=== PATIENT | female | born 1955 | race Caucasian/White ===

== ENCOUNTER 2017-05-05 15:24 | Emergency (ER) | payer BC ==
[~2017-05-05] VITALS: Ht 165.1 cm; Wt 77.0 kg
[2017-05-05 15:26] VITALS: TEMP 36.4; Ht 165.1 cm; Wt 77.0 kg
--- NOTE | 2017-05-05 15:45 | EMERGENCY ROOM VISIT NOTE ---
History Report prepared by Jb: Juan Weaver Under the Supervision of: Dr. Rick Roman M.D. First contact with patient: 15:30 Chief Complaint: OTHER COMPLAINT Stated Complaint: TIGHTNESS FROM NEW MEDS. PARKINSONS History of Present Illness The patient is a 62 year old female who presents to the Emergency Room with complaints of constant abdominal tightness beginning today. The patient states that she has Parkinson's and has recently started multiple new medications within the last week. She notes that her neurologist has changed her medication to control her Parkinson's. She reports that these new medications have made her worried and develop abdominal tightness. The patient states that she was supposed to increase the dose of her medication tonight and is now worried about stopping it. She notes that her tightness might be caused by her anxiety. She denies any change to her bowel movements Source of History: patient Onset: today Position: abdomen Quality: other (tightness) Timing: constant Note: She denies any change to her bowel movements. She also complains of anxiety. Review of Systems See HPI for pertinent positives & negatives. A total of 10 systems reviewed and were otherwise negative. Past Medical & Surgical Medical Problems: (1) Anxiety (2) Parkinson disease Family History Diabetes mellitus Heart disease Hypertension Social History Marital Status: Housing Status: lives with family Occupation Status: unemployed Current/Historical Medications Scheduled Amantadine HCl (Gocovri), 274 MG PO HS Carbidopa-Levodopa (Rytary 23.75-95 mg), Unknown Dose PO Q4H Gabapentin (Neurontin), 100 MG PO TID Lorazepam (Ativan), 1 MG PO TID Ropinirole (Requip), 0.25 MG PO TID Allergies Coded Allergies: Buspirone (Unverified Adverse Reaction, Severe, "COULDN'T FUNCTION", ) Heparin (Unverified Adverse Reaction, Severe, SEIZURES, 05/05/17) Diphenhydramine (Unverified Adverse Reaction, Intermediate, ANXIOUS, ) Metoclopramide (Unverified Adverse Reaction, Intermediate, STOMACH UPSET, 05/05/17) Physical Exam Vital Signs Date Time Temp Pulse Resp B/P (MAP) Pulse Ox O2 Delivery O2 Flow Rate FiO2 05/05/17 16:22 94 18 122/70 92 Room Air 05/05/17 15:26 36.4 105 20 142/96 94 Room Air Physical Exam GENERAL: Awake, alert, well-appearing, in no acute distress HENT: Normocephalic, atraumatic. Oropharynx unremarkable. EYES: Normal conjunctiva. Sclera non-icteric. NECK: Supple. No nuchal rigidity. FROM. No JVD. RESPIRATORY: Clear to auscultation. CARDIAC: Regular rate, normal rhythm. Extremities warm and well perfused. Pulses equal. ABDOMEN: Soft, non-distended. No tenderness to palpation. No rebound or guarding. No masses. RECTAL: Deferred. MUSCULOSKELETAL: Chest examination reveals no tenderness. The back is symmetrical on inspection without obvious abnormality. There is no CVA tenderness to palpation. No joint edema. LOWER EXTREMITIES: Calves are equal size bilaterally and non-tender. No edema. No discoloration. NEURO: Normal sensorium. No sensory or motor deficits noted. SKIN: No rash or jaundice noted. Medical Decision & Procedures ED Course 1531: Past medical records reviewed. The patient was evaluated in room C1. A complete history and physical examination was performed. 1628: Upon reexamination the patient is stable. I discussed results and treatment plan with the patient. She verbalizes agreement and understanding. The patient is ready for discharge. Medical Decision Differential diagnoses include: medication adjustment. This is a 62-year-old female who presents to the emergency department complaining of starting new medications this week and is concerned that they are causing her anxiety. I offered to do laboratory work as well as imaging however the patient refused. She is visiting because she has questions over her medications. She just started her amantadine this week and has only had 7 days of it. She is to increase it tonight however she feels it is causing her anxiety to be worse. Because of this I felt that the patient could go back to her old medication regimen however I stressed the need to follow-up with Dr. Butler's office. Patient was in agreement with the treatment plan. Blood Pressure Screening Patient's blood pressure: Normal blood pressure Blood pressure disposition: Did not require urgent referral Impression Primary Impression: Medication reaction Scribe Attestation The scribe's documentation has been prepared under my direction and personally reviewed by me in its entirety. I confirm that the note above accurately reflects all work, treatment, procedures, and medical decision making performed by me. Departure Information Dispostion Home / Self-Care Forms HOME CARE DOCUMENTATION FORM, IMPORTANT VISIT INFORMATION, WORK / SCHOOL INSTRUCTIONS Patient Instructions My [facility] Additional Instructions Stop taking Amantidine You have been examined and treated today on an emergency basis only. This is not a substitute for, or an effort to provide, complete comprehensive medical care. It is impossible to recognize and treat all injuries or illnesses in a single emergency department visit. It is therefore important that you follow up closely with him is likely getting better that happened all day mik PCP. Call as soon as possible for an appointment. Thank you for your time and consideration. I look forward to speaking with you again soon. Please don't hesitate to call us if you have any questions. He missed me Problem Qualifiers Primary Impression: Medication reaction Encounter type: initial encounter Qualified Codes: T88.7XXA - Unspecified adverse effect of drug or medicament, initial encounter
[2017-05-05] MEDS ORDERED: ROPI0.25 PO (16:08)
[2017-05-05] MEDS ORDERED: AMAN137C PO (16:08)
[2017-05-05] MEDS ORDERED: ATV/1 PO (16:08)
[2017-05-05] MEDS ORDERED: CARB1CAP19 PO (16:08)
[2017-05-05] MEDS ORDERED: GABA-112 PO (16:08)
[2017-05-05 16:22] VITALS: BP 122/70; PULSE 94; O2SAT 92
== END 2017-05-05 16:37 | disposition home or self-care (01) ==
LOC: C.EDB 15:27 → C.EDC 16:37
DX: F41.9 Anxiety disorder, unspecified (principal); T42.8X5A Adverse effect of antiparkinsonism drugs and other central muscle-tone depressants, initial encounter; G20 Parkinson's disease; Z83.3 Family history of diabetes mellitus; Z82.49 Family history of ischemic heart disease and other diseases of the circulatory system; Z88.8 Allergy status to other drugs, medicaments and biological substances; Z88.6 Allergy status to analgesic agent

== ENCOUNTER 2017-05-12 14:06 | Emergency (ER) | payer BC ==
[~2017-05-12 14:06] MED LIST: AMAN137C PO; ATV/1 PO; CARB1CAP19 PO; GABA-112 PO; ROPI0.25 PO
[2017-05-12 14:11] VITALS: TEMP 36.3
[2017-05-12] MEDS ORDERED: SODIUM CHLORIDE 0.9% 1000ML 1,000 ML IV STA (14:25)
[2017-05-12] MEDS ORDERED: LORAZEPAM 2 MG/ML 1 ML VIAL IV STA (14:25)
--- NOTE | 2017-05-12 14:34 | EMERGENCY ROOM VISIT NOTE ---
History Report prepared by Jb: Jonathan Aldridge Under the Supervision of: Dr. Josemanuel Gomez M.D. First contact with patient: 14:15 Chief Complaint: ANXIETY Stated Complaint: BLOATING,DIFFICULTY WALKING,AGITATION,ANXIETY History of Present Illness The patient is a 62 year old female who presents to the Emergency Room with complaints of worsening Parkinson's/anxiety that began about a week ago. The patient states that she has a history of Parkinson's Disease and was recently prescribed amantadine a week ago by Dr. Butler. She reports that since taking the medication she has been experiencing abdominal bloating, tightness, and muscle rigidity. Per the patient's daughter, the patient has been experiencing mood swings and anxiety. She reports that the patient has been experiencing sensations that may not be there. The patient states that she feels as if she wants to cry all the time, but denies any thoughts of hurting herself. The patient reports that she followed up with Dr. Butler who told her to keep taking the amantadine, but she states she feels the medication is causing her symptoms. the patient denies headache, a recent fall, vomiting, and thoughts of hurting herself. Source of History: patient Onset: a week ago Position: other (global) Timing: worsening Associated Symptoms: + abdominal pain (tightness), No headache, No vomiting Note: Associated symptoms: bloating, mood swings. Review of Systems See HPI for pertinent positives and negatives. A total of ten systems were reviewed and were otherwise negative. Past Medical & Surgical Medical Problems: (1) Anxiety (2) Parkinson disease Family History Diabetes mellitus Heart disease Hypertension Social History Smoking Status: Never Smoker Marital Status: Housing Status: lives with family Occupation Status: unemployed Current/Historical Medications Scheduled Amantadine HCl (Gocovri), 274 MG PO HS Carbidopa-Levodopa (Rytary 23.75-95 mg), Unknown Dose PO Q4H Lorazepam (Ativan), 1 MG PO TID Ropinirole (Requip), 0.25 MG PO TID Allergies Coded Allergies: Buspirone (Unverified Adverse Reaction, Severe, "COULDN'T FUNCTION", ) Heparin (Unverified Adverse Reaction, Severe, SEIZURES, 05/12/17) Diphenhydramine (Unverified Adverse Reaction, Intermediate, ANXIOUS, ) Metoclopramide (Unverified Adverse Reaction, Intermediate, STOMACH UPSET, 05/12/17) Physical Exam Vital Signs Date Time Temp Pulse Resp B/P (MAP) Pulse Ox O2 Delivery O2 Flow Rate FiO2 05/12/17 17:12 86 16 111/72 98 05/12/17 16:18 84 16 112/76 95 Room Air 05/12/17 15:17 68 22 116/66 05/12/17 14:11 36.3 90 20 138/91 97 Room Air Physical Exam Physical Exam GENERAL: She is oriented to person, place, and time. She appears well- developed and well-nourished. She does not appear distressed. ____ HENT: Exam performed. Head: Normocephalic and atraumatic. Right Ear: External ear normal. No mastoid tenderness. Left Ear: External ear normal. No mastoid tenderness. Mouth/Throat: The oropharynx is clear and moist. No trismus in the jaw. No dental abscesses or uvula swelling. No oropharyngeal exudate or tonsillar abscesses. ____ EYES: Conjunctivae and EOM are normal. Pupils are equal, round, and reactive to light. Right eye exhibits no discharge. Left eye exhibits no discharge. No scleral icterus. ____ NECK: Normal range of motion. Neck supple. No JVD present. No spinous process tenderness present. No carotid bruit present. No rigidity. No tracheal deviation and normal range of motion present. No Brudzinski's sign and no Kernig 's sign noted. ____ CV: Normal rate, regular rhythm, normal heart sounds and intact distal pulses. There is no peripheral edema. Palpable radial pulses bue. ____ PULM/CHEST: Effort normal and breath sounds normal. No respiratory distress. No stridor. She has no wheezes. She has no rales. Chest Wall: She exhibits no tenderness. ____ ABD: The abdomen is soft. Bowel sounds are normal. She has no distension. No mass is present. There is no tenderness. There is no rebound, no guarding, no Howard's sign and no tenderness at McBurney's point. Rovsig negative MUSC/SKEL: Normal range of motion. There is no peripheral edema, tenderness or deformity. LYMPH: No cervical adenopathy. ____ NEURO: She is alert. She has a baseline tremor. She is anxious. Mild cogwheel rigidity. ____ SKIN: Skin is warm and dry. She is not diaphoretic. ____ PSYCH: Anxious/agitated. Medical Decision & Procedures ER Provider Diagnostic Interpretation: Radiology results as stated below per my review and radiologist interpretation: SINGLE VIEW CHEST CLINICAL HISTORY: Parkinson's disease. Anxiety. FINDINGS: An AP, portable, upright chest radiograph is obtained. No prior studies are available for comparison at the time of dictation. The examination is degraded by portable technique and patient rotation. The cardiomediastinal silhouette is unremarkable. There is mild atherosclerotic calcification of the thoracic aorta. No airspace consolidation or pleural effusion is identified. There is minimal left basilar atelectasis. No pneumothorax is seen. The skeletal structures are osteopenic. The bony thorax is grossly intact. IMPRESSION: No acute cardiopulmonary abnormality. Electronically signed by: Kennedy Rosa M.D. 05/12/2017 2:58 PM Dictated Date/Time: 05/12/2017 2:[address] SCAN OF THE BRAIN WITHOUT IV CONTRAST CLINICAL HISTORY: Parkinson's disease. Anxiety. COMPARISON STUDY: No priors. TECHNIQUE: Unenhanced axial CT scan of the brain is performed from the vertex to the skull base. A dose lowering technique was utilized adhering to the principles of ALARA. CT DOSE: 537.48 mGy.cm FINDINGS: Brain parenchyma: The brain parenchyma is normal in appearance. There is no hemorrhage, mass effect, or evidence of acute territorial ischemia by CT criteria. Powers-white matter is preserved. No extra-axial fluid collection is seen. Ventricles, sulci, cisterns: Normal in configuration. Intracranial vasculature: The visualized intracranial vasculature at the skull base is normal in appearance. Calvarium: Unremarkable. Sinuses and mastoids: The visualized paranasal sinuses are clear. The mastoid air cells are well pneumatized. Orbits: The bony orbits are grossly intact. IMPRESSION: There is no hemorrhage, mass effect, or evidence of acute territorial ischemia by CT criteria. Electronically signed by: Kennedy Rosa M.D. 05/12/2017 4:00 PM Dictated Date/Time: 05/12/2017 3:57 PM Laboratory Results 05/12/17 14:50 Red Blood Count 5.47, Mean Corpuscular Volume 86.3, Mean Corpuscular Hemoglobin 29.6, Mean Corpuscular Hemoglobin Concent 34.3, Mean Platelet Volume 10.1, Neutrophils (%) (Auto) 69.0, Lymphocytes (%) (Auto) 22.4, Monocytes (%) (Auto) 7.4, Eosinophils (%) (Auto) 0.9, Basophils (%) (Auto) 0.2, Neutrophils # (Auto) 5.65, Lymphocytes # (Auto) 1.84, Monocytes # (Auto) 0.61, Eosinophils # (Auto) 0.07, Basophils # (Auto) 0.02 05/12/17 14:50 Test 05/12/17 14:49 05/12/17 14:50 05/12/17 16:18 Lactic Acid Level 1.0 mmol/L (0.4-2.0) Ammonia 11.0 umol/L (11-32) Ethyl Alcohol mg/dL < 3.0 mg/dl (0-3) White Blood Count 8.20 K/uL (4.8-10.8) Red Blood Count 5.47 M/uL (4.2-5.4) Hemoglobin 16.2 g/dL (12.0-16.0) Hematocrit 47.2 % (37-47) Mean Corpuscular Volume 86.3 fL (80-100) Mean Corpuscular Hemoglobin 29.6 pg (25-34) Mean Corpuscular Hemoglobin Concent 34.3 g/dl (32-36) Platelet Count 251 K/uL (130-400) Mean Platelet Volume 10.1 fL (7.4-10.4) Neutrophils (%) (Auto) 69.0 % Lymphocytes (%) (Auto) 22.4 % Monocytes (%) (Auto) 7.4 % Eosinophils (%) (Auto) 0.9 % Basophils (%) (Auto) 0.2 % Neutrophils # (Auto) 5.65 K/uL (1.4-6.5) Lymphocytes # (Auto) 1.84 K/uL (1.2-3.4) Monocytes # (Auto) 0.61 K/uL (0.11-0.59) Eosinophils # (Auto) 0.07 K/uL (0-0.5) Basophils # (Auto) 0.02 K/uL (0-0.2) RDW Standard Deviation 41.0 fL (36.4-46.3) RDW Coefficient of Variation 12.9 % (11.5-14.5) Immature Granulocyte % (Auto) 0.1 % Immature Granulocyte # (Auto) 0.01 K/uL (0.00-0.02) Prothrombin Time 10.7 SECONDS (9.0-12.0) Prothromb Time International Ratio 1.0 (0.9-1.1) Activated Partial Thromboplast Time 27.1 SECONDS (21.0-31.0) Partial Thromboplastin Ratio 1.0 Anion Gap 11.0 mmol/L (3-11) Estimated GFR () 95.1 Estimated GFR (Non- 82.1 BUN/Creatinine Ratio 12.5 (10-20) Calcium Level 8.8 mg/dl (8.5-10.1) Total Bilirubin 0.6 mg/dl (0.2-1) Direct Bilirubin 0.1 mg/dl (0-0.2) Aspartate Amino Transf (AST/SGOT) 16 U/L (15-37) Alanine Aminotransferase (ALT/SGPT) 9 U/L (12-78) Alkaline Phosphatase 125 U/L (45-117) Total Creatine Kinase 158 U/L (26-192) Troponin I < 0.015 ng/ml (0-0.045) Total Protein 7.9 gm/dl (6.4-8.2) Albumin 3.9 gm/dl (3.4-5.0) Lipase 128 U/L (73-393) Salicylates Level < 1.7 mg/dl (2.8-20) Acetaminophen Level < 2 ug/ml (10-30) Urine Color YELLOW Urine Appearance CLEAR (CLEAR) Urine pH 6.5 (4.5-7.5) Urine Specific [place] 1.009 (1.000-1.030) Urine Protein NEG (NEG) Urine Glucose (UA) NEG (NEG) Urine Ketones NEG (NEG) Urine Occult Blood NEG (NEG) Urine Nitrite NEG (NEG) Urine Bilirubin NEG (NEG) Urine Urobilinogen NEG (NEG) Urine Leukocyte Esterase NEG (NEG) Urine Opiates Screen NEG (NEG) Urine Methadone, Qualitative NEG (NEG) Urine Barbiturates NEG (NEG) Urine Phencyclidine (PCP) Level NEG (NEG) Ur Amphetamine/Methamphetamine NEG (NEG) MDMA (Ecstasy) Screen NEG (NEG) Urine Benzodiazepines Screen NEG (NEG) Urine Cocaine Metabolite NEG (NEG) Urine Marijuana (THC) NEG (NEG) Laboratory results reviewed by me Medications Administered Medications (Trade) Dose Ordered Sig/Leno Route Start Time Stop Time Status Last Admin Dose Admin Sodium Chloride 1,000 ml @ 125 mls/hr Q8H STAT IV 05/12/17 14:25 05/12/17 18:05 DC 05/12/17 15:05 125 MLS/HR Lorazepam (Ativan Inj) 0.5 mg NOW STAT IV 05/12/17 14:25 05/12/17 14:34 DC 05/12/17 15:05 0.5 MG ECG Per My Interpretation Indication: altered mental status Rate (beats per minute): 85 Rhythm: normal sinus Findings: other (AL, QRS, QTC WNL// No ST elevation/depression) ED Course 1418: The patient was evaluated in room B02. A complete history and physical exam was performed. The patient was seen in the emergency department one week ago for abdominal tightness that was thought to be from Amantadine for her Parkinson's disease vs. her anxiety. She declined any lab work or imaging and was supposed to follow up with Dr. Butler. 1425: Ordered Ativan Injection 0.5 mg IV, Sodium Chloride 1000 ml @ 125 mls/hr IV. 1428: I spoke with the daughter and family members. They state she was hospitalized in mental health facility in January due to anxiety. Daughter states that the patient had multiple episodes of hospitalization due to anxiety and worsening Parkinson's disease. She was being evaluated at [facility], but started to come to [facility] after being seen by Dr. Butler. 1648: I reevaluated the patient and her vitals are stable. The patient is eating and in no distress. Her tremor has resolved and she is states she is no longer feeling anxious. Labs and imaging are within normal limites. 1654: I discussed the patient's case with Dr. Butler, [facility]. She reports the patient's case is an ongoing issue and the patient has been calling the office one to two times a week. She believes the patient is not experiencing these symptoms due to the Amantadine but believes it is more anxiety related, especially since her symptoms get better with Ativan. Dr. Butler recommends continuing the medication and following up this week. I explained the results and treatment plan to the family. They were upset because they wanted the patient's medication changed. I reported that I could not change the medication and told them to follow up with Dr. Butler for these concerns. Medical Decision 1418: The patient was evaluated in room B02. A complete history and physical exam was performed. The patient was seen in the emergency department one week ago for abdominal tightness that was thought to be from Amantadine for her Parkinson's disease vs. her anxiety. She declined any lab work or imaging and was supposed to follow up with Dr. Butler. 1425: Ordered Ativan Injection 0.5 mg IV, Sodium Chloride 1000 ml @ 125 mls/hr IV. 1428: I spoke with the daughter and family members. They state she was hospitalized in mental health facility in January due to anxiety. Daughter states that the patient had multiple episodes of hospitalization due to anxiety and worsening Parkinson's disease. She was being evaluated at [facility], but started to come to [facility] after being seen by Dr. Butler. 1648: I reevaluated the patient and her vitals are stable. The patient is eating and in no distress. Her tremor has resolved and she is states she is no longer feeling anxious. Labs and imaging are within normal limites. 1654: I discussed the patient's case with Dr. Butler, [facility]. She reports the patient's case is an ongoing issue and the patient has been calling the office one to two times a week. She believes the patient is not experiencing these symptoms due to the Amantadine but believes it is more anxiety related, especially since her symptoms get better with Ativan. Dr. Butler recommends continuing the medication and following up this week. I explained the results and treatment plan to the family. They were upset because they wanted the patient's medication changed. I reported that I could not change the medication and told them to follow up with Dr. Butler for these concerns. Medication Reconcilliation Current Medication List: was personally reviewed by me Blood Pressure Screening Patient's blood pressure: Normal blood pressure Consults Time Called: 1653 Consulting Physician: Dr. Butler, [facility] Returned Call: 1653 I discussed the patient's case with Dr. Butler, [facility]. She reports the patient's case is an ongoing issue and the patient has been calling the office one to two times a week. She believes the patient is not experiencing these symptoms due to the Amantadine but believes it is more anxiety related, especially since her symptoms get better with Ativan. Dr. Butler recommends continuing the medication and following up this week. Impression Primary Impression: Parkinson disease Additional Impression: Anxiety Scribe Attestation The scribe's documentation has been prepared under my direction and personally reviewed by me in its entirety. I confirm that the note above accurately reflects all work, treatment, procedures, and medical decision making performed by me. The chart was completed utilizing [employer] voice recognition software. Grammatical errors, random word insertions, pronoun errors, and incomplete sentences are an occasional consequence of this system due to software limitations, ambient noise, and hardware issues. Any formal questions or concerns about the content, text, or information contained within the body of this dictation should be directly addressed to the physician for clarification. Departure Information Dispostion Home / Self-Care Referrals Billie Xie (PCP) Forms HOME CARE DOCUMENTATION FORM, IMPORTANT VISIT INFORMATION Patient Instructions My [facility], Parkinson Disease Home Safety, Parkinson Disease Manage , Parkinson Disease Tips Meds, Parkinson Disease [place] Overview Additional Instructions call your neurologist Dr. Liu tomorrow to schedule outpatient follow up appointment Problem Qualifiers
--- NOTE | 2017-05-12 15:00 | DIAGNOSTIC IMAGING REPORT ---
SINGLE VIEW CHEST CLINICAL HISTORY: Parkinson's disease. Anxiety. FINDINGS: An AP, portable, upright chest radiograph is obtained. No prior studies are available for comparison at the time of dictation. The examination is degraded by portable technique and patient rotation. The cardiomediastinal silhouette is unremarkable. There is mild atherosclerotic calcification of the thoracic aorta. No airspace consolidation or pleural effusion is identified. There is minimal left basilar atelectasis. No pneumothorax is seen. The skeletal structures are osteopenic. The bony thorax is grossly intact. IMPRESSION: No acute cardiopulmonary abnormality. Electronically signed by: Kennedy Rosa M.D. 05/12/2017 2:58 PM Dictated Date/Time: 05/12/2017 2:58 PM
[2017-05-12 15:03] LABS: BASO % 0.2 %; BASO ABS # 0.02 K/uL (0-0.2); EOS % 0.9 %; EOS ABS # 0.07 K/uL (0-0.5); HEMATOCRIT 47.2 % (37-47); HEMOGLOBIN 16.2 g/dL (12.0-16.0); IG# 0.01 K/uL (0.00-0.02); LYMPH % 22.4 %; LYMPH ABS # 1.84 K/uL (1.2-3.4); MEAN CELL VOLUME 86.3 fL (80-100); MEAN CORPUSCULAR HEMOGLOBIN 29.6 pg (25-34); MEAN CORPUSCULAR HGB CONC 34.3 g/dl (32-36); MEAN PLATELET VOLUME 10.1 fL (7.4-10.4); MONO % 7.4 %; MONO ABS # 0.61 K/uL (0.11-0.59); NEUT ABS # 5.65 K/uL (1.4-6.5); PLATELET COUNT 251 K/uL (130-400); RED CELL DISTRIBUTION WIDTH CV 12.9 % (11.5-14.5)
[2017-05-12 15:11] LABS: PTT PATIENT 27.1 SECONDS (21.0-31.0)
[2017-05-12 15:22] LABS: ALBUMIN 3.9 gm/dl (3.4-5.0); ALT/SGPT 9 U/L (12-78); BLOOD UREA NITROGEN 10 mg/dl (7-18); CALCIUM 8.8 mg/dl (8.5-10.1); CARBON DIOXIDE 25 mmol/L (21-32); CREATININE 0.78 mg/dl (0.60-1.20); GLUCOSE 100 mg/dl (70-99); LIPASE 128 U/L (73-393); POTASSIUM 3.9 mmol/L (3.5-5.1); SODIUM 140 mmol/L (136-145)
[2017-05-12 15:27] LABS: ALKALINE PHOSPHATASE 125 U/L (45-117); AST/SGOT 16 U/L (15-37); TOTAL PROTEIN 7.9 gm/dl (6.4-8.2)
--- NOTE | 2017-05-12 16:02 | DIAGNOSTIC IMAGING REPORT ---
CT SCAN OF THE BRAIN WITHOUT IV CONTRAST CLINICAL HISTORY: Parkinson's disease. Anxiety. COMPARISON STUDY: No priors. TECHNIQUE: Unenhanced axial CT scan of the brain is performed from the vertex to the skull base. A dose lowering technique was utilized adhering to the principles of ALARA. CT DOSE: 537.48 mGy.cm FINDINGS: Brain parenchyma: The brain parenchyma is normal in appearance. There is no hemorrhage, mass effect, or evidence of acute territorial ischemia by CT criteria. Powers-white matter is preserved. No extra-axial fluid collection is seen. Ventricles, sulci, cisterns: Normal in configuration. Intracranial vasculature: The visualized intracranial vasculature at the skull base is normal in appearance. Calvarium: Unremarkable. Sinuses and mastoids: The visualized paranasal sinuses are clear. The mastoid air cells are well pneumatized. Orbits: The bony orbits are grossly intact. IMPRESSION: There is no hemorrhage, mass effect, or evidence of acute territorial ischemia by CT criteria. Electronically signed by: Kennedy Rosa M.D. 05/12/2017 4:00 PM Dictated Date/Time: 05/12/2017 3:57 PM
[2017-05-12 17:12] VITALS: BP 111/72; PULSE 86; O2SAT 98
== END 2017-05-12 17:12 | disposition home or self-care (01) ==
LOC: C.EDB 14:07
DX: G20 Parkinson's disease (principal); F41.9 Anxiety disorder, unspecified; Z83.3 Family history of diabetes mellitus; Z82.49 Family history of ischemic heart disease and other diseases of the circulatory system; Z79.899 Other long term (current) drug therapy; Z88.8 Allergy status to other drugs, medicaments and biological substances